=== PATIENT | male | born 1950 | race Caucasian/White ===

== ENCOUNTER → 2016-07-28 | Outpatient (CLI) | payer MEDICARE, OTHER ==
[2016-07-28 11:53] LABS: Appearance,Urine Clear (Clear); Bilirubin,Urine Negative (Negative); Glucose,Urine (UA) Negative (Negative); Ketones,Urine Negative (Negative); Leukocyte Esterase,Urine Negative (Negative); Nitrite,Urine Negative (Negative); Protein,Urine Negative (Negative); Specific Gravity,Urine 1.008 (1.001-1.035); UA Billing (MACRO vs. MICRO) CHEM; Urobilinogen,Urine <2.0 mg/dL (<2.0)
[2016-07-28 11:56] LABS: Partial Thromboplastin Time 24.9 sec (22.0-30.0); Prothrombin Time 10.3 sec (9.0-12.0)
[2016-07-28 11:57] LABS: Basophils % (A) 1 %; CHCM 33.4; Eosinophils # (A) 0.2 k/uL (0-0.7); Eosinophils % (A) 3 %; HGB 13.3 gm/dL (13.0-17.5); Luc # (Auto) 0.16; Luc % (Auto) 2; Lymphocytes # (A) 1.8 k/uL (1.0-4.8); Lymphocytes % (A) 26 %; MCHC 33.3 g/dL (31.0-37.0); MCV 87.1 fL (80.0-100.0); Mean Platelet Volume 7.4; Monocytes # (A) 0.6 k/uL (0-1.0); Monocytes % (A) 8 %; Neutrophils # (A) 4.2 k/uL (1.3-7.7); Neutrophils % (A) 61 %; RBC 4.59 m/uL (4.30-5.90); RDW 14.3 % (11.5-15.5); WBC 6.9 k/uL (3.8-10.6); WBC (Perox) 6.87
[2016-07-28 12:07] LABS: Anion Gap 8 mmol/L; Blood Urea Nitrogen 23 mg/dL (9-20); Calcium 8.9 mg/dL (8.4-10.2); Carbon Dioxide 30 mmol/L (22-30); Chloride 100 mmol/L (98-107); Glucose 91 mg/dL (74-99); Non-African American GFR(MDRD) >60 (>60 ml/min/1.73 sqM); Potassium 3.9 mmol/L (3.5-5.1); Sodium 138 mmol/L (137-145)
--- NOTE | 2016-07-28 12:08 | XR ---
EXAMINATION TYPE: XR chest 2V DATE OF EXAM: 07/28/2016 12:03 PM COMPARISON: NONE TECHNIQUE: PA and lateral views submitted. HISTORY: Presurgical FINDINGS: The lungs are clear and there is no pneumothorax, pleural effusion, or focal pneumonia. Hypertrophi c and degenerative change of the spine. Arthropathy of the shoulders. No overt failure. IMPRESSION: 1. No acute process.
== END | disposition home or self-care (01) ==
LOC: LABPAT 11:16
PROVIDERS: ATTEND Orthopaedic Surgery Orthopaedic Surgery of the Spine
DX: Z01.812 Encounter for preprocedural laboratory examination (principal)
CPT/HCPCS: 71020; 80048; 81003; 85025; 85610; 85730

== ENCOUNTER → 2016-08-05 | Outpatient (CLI) | payer MEDICARE, OTHER | END | disposition home or self-care (01) | LOC: LABWHC1 11:49 | PROVIDERS: ATTEND Orthopaedic Surgery Orthopaedic Surgery of the Spine | DX: Z01.818 Encounter for other preprocedural examination (principal); Z79.01 Long term (current) use of anticoagulants | CPT/HCPCS: 86850; 86900; 86901 ==

== ENCOUNTER 2016-08-10 09:51 | Inpatient (IN) | payer MEDICARE, OTHER ==
[2016-07-30 15:16] VITALS: BMI 26.7
[~2016-08-10 09:51] MED LIST: BACITRACIN 50,000 UNIT, POLYMYXIN B 500,000 UNIT in SODIUM CHLORIDE 0.9% IRRIGATIO 1,00... IRRIGATION ONE; DEXAMETHASONE SOD PHOSPHATE 10 MG/ML 1 ML VIAL IV ONE; HYDROmorphone 1 MG/ML 1 ML SYRINGE IVP PRN; LIDOCAINE 1% 20 ML VIAL (10MG/ML) FOR IV START INTRADERMA PRN; ONDANSETRON 4 MG/2 ML VIAL IVP ONE; SCOPOLAMINE 1.5MG/72HR PATCH TRANSDERM ONE; ceFAZolin 2 GM in SODIUM CHLORIDE 0.9% 100 ML IVPB ONE
[2016-08-10] MEDS: LACTATED RINGERS 1,000 ML IV SCH (11:59)
[2016-08-10] MEDS ORDERED: MIDAZOLAM 2 MG/2 ML VIAL IV ONE (12:08)
[2016-08-10] MEDS ORDERED: LIDOCAINE 0.5%-EPI 1:200,000 50 ML VIAL SQ ONE ×3 (12:46→13:21)
[2016-08-10] MEDS ORDERED: GELATIN SPONGE,ABSORB (LARGE) 1 EACH SPONGE MISCELLANE ONE ×2 (12:46→13:21)
[2016-08-10] MEDS ORDERED: THROMBIN (BOVINE) 5,000 UNIT VIAL MISCELLANE ONE ×2 (12:47→13:21)
[2016-08-10] MEDS ORDERED: ePHEDrine 50 MG/ML 1 ML AMP ONE (12:48)
[2016-08-10] MEDS ORDERED: PHENYLEPHRINE-0.9% NACL SYG 1 MG/10 ML SYRINGE ONE (12:48)
[2016-08-10] MEDS ORDERED: PROPOFOL 10 MG/ML 20 ML VIAL IV ONE (12:48)
[2016-08-10] MEDS ORDERED: GLYCOPYRROLATE 0.2 MG/ML 2 ML VIAL ONE (12:48)
[2016-08-10] MEDS ORDERED: MIDAZOLAM 2 MG/2 ML VIAL ONE (12:48)
[2016-08-10] MEDS ORDERED: SUCCINYLCHOLINE CHLORIDE 100 MG/5 ML SYR IV ONE (12:48)
[2016-08-10] MEDS ORDERED: LIDOCAINE 1% INJ 10MG/ML (20 ML MDV) ONE (12:48)
[2016-08-10] MEDS ORDERED: ROCURONIUM BROMIDE 10 MG/ML 10 ML VIAL IV ONE (12:48)
[2016-08-10] MEDS ORDERED: fentaNYL (PF) 50 MCG/ML 2 ML AMP ONE (12:48)
[2016-08-10] MEDS ORDERED: LACTATED RINGERS 1,000 ML IV ONE ×2 (13:44→15:18)
--- NOTE | 2016-08-10 14:22 | XR ---
Cervical spine HISTORY: Needle placement Single lateral view of the cervical spine submitted No comparisons There is a needle at the intervertebral disc space C4-5 with there is associated loss of disc height. Endotracheal tube is in place. There are overlying leads. Anterolisthesis grade 1 C4-5. There is mul tilevel spondylosis and loss of disc height and intervertebral levels. IMPRESSION: Orthopedic localization.
[2016-08-10] MEDS ORDERED: BENZOCAINE/MENTHOL LOZENG 1 EACH LOZENGE MUCOUS MEM PRN (15:15)
[2016-08-10] MEDS ORDERED: DIAZEPAM 5 MG TAB PO PRN (15:15)
[2016-08-10] MEDS ORDERED: MAGNESIUM HYDROXIDE 2,400 MG/10 ML CUP PO PRN (15:15)
[2016-08-10] MEDS ORDERED: HYDROmorphone 1 MG/ML 1 ML SYRINGE IVP PRN (15:15)
[2016-08-10] MEDS ORDERED: ONDANSETRON 4 MG/2 ML VIAL IVP PRN (15:16)
[2016-08-10] MEDS ORDERED: ACETAMINOPHEN TAB 325 MG TAB PO PRN (15:16)
[2016-08-10] MEDS ORDERED: DOCUSATE 100 MG CAP PO PRN (15:17)
[2016-08-10] MEDS ORDERED: traMADol 50 MG TAB PO PRN (15:19)
--- NOTE | 2016-08-10 15:26 | P.OP ---
Date of Procedure: 08/10/16 Preoperative Diagnosis: Cervical stenosis C4 5 C5 6 C6 7, degenerative disc disease C4 5 C5 6 C6 7, herniated nucleus pulposis C4 5 C5 6 C6 7, neck pain with right upper extremity radiculopathy Postoperative Diagnosis: Same Procedure(s) Performed: Implants: Anesthesia: GETA Pathology: none sent Condition: stable Disposition: PACU Indications for Procedure: Operative Findings: Description of Procedure: BRIEF OPERATIVE NOTE Preoperative Diagnosis: Cervical stenosis C4 5 C5 6 C6 7, degenerative disc disease C4 5 C5 6 C6 7, herniated nucleus pulposus C4 5 C5 6 C6 7, neck pain with upper extremity radiculopathy Postoperative Diagnosis: Same Procedure: Anterior cervical decompression with discectomy and fusion C4 5 C5 6 C6 7 Placement of interbody graft C4 5 C5 6 C6 7 Application of anterior cervical plate C4 5 6 and 7 Surgeon: Dr. Park Photovoltaic Panel Installer: Sherif Sky is present throughout the entire the case persistence during positioning, dissection, exposure, visualization, and all crucial elements of the case as well as closure. Anesthesia: General anesthesia Estimated blood loss: Approximately 100 mL Complications: None apparent Components implanted: K2M Rose anterior cervical plate system with a 56 mm plate and 8 screws measuring 40 by 13 mm and ViKos interbody allograft bone graft Disposition: To recovery room in good stable condition. OPERATIVE INDICATIONS The patient has had long-standing issues in their neck and upper extremities. He is found have severe stenosis at C4 5 C5 6 C6 7 with significant disc degeneration evidence of herniated disc which correlated well with his neck and upper extremity symptoms particularly on the right side. The patient has been through conservative treatment. He is not having any prolonged benefit despite aggressive conservative treatment. We discussed various treatment options including surgery, and the patient wishes to proceed with surgery We discussed the risk, patient's alternatives and benefits of surgery including but not limited to, risk of bleeding risk of infection, risk of need for further surgery , risk of decreased, loss of motion, muscle function, malunion nonunion, hardware failure, nerve damage, paralysis, heart attack, and . OPERATIVE SUMMARY After discussing all the risks, patient alternatives and benefits at length, the patient elected to proceed with surgical intervention, signed informed consent, and presented for their procedure. The patient was seen and examined in the preoperative holding area and the surgical site was marked. The patient was given antibiotics and brought to the operating room. The patient was positioned on the operating room table in a supine position being careful to pad any bony prominences and pressure points. The patient was sedated and intubated by anesthesia in standard fashion. Once the airway and C- spine were stabilized the patient's arms were padded and tucked at her side, with her shoulders gently taped. The head was placed in a donut pad with the neck in good neutral alignment and position. We were careful to maintain the patient's cervical spine and good neutral alignment and position throughout. The patient was prepped and draped in a normal standard fashion. An appropriate timeout and keystone protocol performed. We were able to proceed with the surgery. The local wound area was infiltrated with local anesthetic. An incision was made transversely approximately 2-1/2 cm over the appropriate levels at C5 6. Dissection was taken down subcutaneously to the level of the platysma which was split in line with its fibers. Dissection was taken with a carotid approach, with the trachea and esophagus medial and the carotid sheath laterally. We dissected down to the anterior surface of the vertebral bodies at C4 5 6 and 7. Intraoperative x-ray was taken which showed a marker at the appropriate level at C4 5. With the appropriate level positively confirmed, we were able to proceed with discectomy at the appropriate levels starting at C6 7 and then at C5 6 and then at C45. There is significant anterior osteophytic spurring and these anterior spurs removed with comminution of rongeurs and high- speed bur. All of the operative levels were exposed appropriately. The patient had all their twitches back, and there was no evidence of recurrent laryngeal issue. The wound was copiously irrigated and suctioned dry as had been done periodically throughout the case. At the appropriate level/levels, I established an annulotomy with an 11 blade scalpel. A discectomy was performed with a combination of pituitary rongeurs, curettes, a high-speed bur, and Kerrison rongeurs. The posterior longitudinal ligament was taken down as were any posterior osteophytes. Note was made of severe disc degeneration at each of the levels particularly at C4 5 and at C6 7 I was able to take down the posterior osteophytic spurs as well as the disc protrusion, herniation and posterior longitudinal ligament. This was done at each level. This gave good central and bilateral foraminal decompression. There is no evidence of any dural tear or leak. The endplates were prepared with a high-speed bur. With the endplates in good parallel position, I was able to size for the appropriate size interbody graft. The wound was irrigated and suctioned dry the graft was prepared and malleted into position. It had good alignment and position with the anterior surface flush with the anterior surface of the vertebral bodies. This was done similarly the appropriate levels. With the grafts intact, I was able to measure and contour and appropriate sized plate. The plate was positioned at the midline over the appropriate levels from C4 C7. Screw holes were established with a hand drill and drill guide. Screws were placed in good alignment and position with excellent bony purchase. They were seated under the locking device. The construct was checked and found to be stable. Intraoperative x-ray was taken which showed good alignment and position of the implants at the appropriate levels from C4 to C7. There was no evidence of any dural tear or leak. Good hemostasis was maintained. The wound was copiously irrigated and suctioned dry as had been done periodically throughout the case. The platysma was closed with absorbable suture. The subcutaneous tissue was closed. The subcuticular tissue was closed with absorbable suture. The wound was cleaned and dried and dressed appropriately. A soft cervical collar was placed appropriately. The patient was woken up by anesthesia, extubated, transferred back gently to their hospital bed and brought to the recovery room in good stable condition. The patient will be admitted to the hospital for appropriate postoperative care , medical management and monitoring. We will continue to follow them closely about the postoperative course.
--- NOTE | 2016-08-10 15:51 | XR ---
EXAMINATION TYPE: XR cervical spine 1V DATE OF EXAM ORDERED: 08/10/2016 HISTORY: Hardware Placement. COMPARISON: Intraoperative study of earlier today. FINDINGS: There has been an ACDF extending from C4 to C7. Alignment is maintained. Spacing material has been placed. IMPRESSION: STATUS POST ACDF C4-C7.
[2016-08-10] MEDS: CARVEDILOL 3.125 MG TAB PO SCH (17:54)
[2016-08-10] MEDS ORDERED: GLUCOSAMINE PO SCH (21:00)
[2016-08-10] MEDS ORDERED: EZETIMIBE 10 MG TAB PO SCH (21:00)
[2016-08-10] MEDS ORDERED: CHONDRO SU A PO SCH (21:00)
[2016-08-10] MEDS ORDERED: GABAPENTIN 300 MG CAP PO SCH (21:00)
[2016-08-10] MEDS: ceFAZolin 2 GM in SODIUM CHLORIDE 0.9% 100 ML IVPB SCH (22:22)
[2016-08-11 01:26] VITALS: RESP 16
[2016-08-11] MEDS: SODIUM CHLORIDE 0.9% 1,000 ML IV SCH ×2 (04:56→09:17)
[2016-08-11] MEDS: ceFAZolin 2 GM in SODIUM CHLORIDE 0.9% 100 ML IVPB SCH (05:05)
[2016-08-11] MEDS ORDERED: LEVOTHYROXINE 100 MCG TAB PO SCH (06:30)
[2016-08-11 07:44] VITALS: BP 160/80; PULSE 67; TEMP 97.7
--- NOTE | 2016-08-11 08:47 | P.DS ---
Providers Date of admission: 08/10/16 11:20 Expected date of discharge: 08/11/16 Attending physician: Reynaldo Park Primary care physician: Stated None - Discharge Diagnosis(es) (1) Arthrodesis status Current Visit: Yes Status: Acute (2) Cervical stenosis of spinal canal Current Visit: Yes Status: Acute (3) Degenerative disc disease, cervical Current Visit: Yes Status: Acute (4) Herniated nucleus pulposus, cervical Current Visit: Yes Status: Acute (5) Radiculopathy affecting upper extremity Current Visit: Yes Status: Acute Hospital Course: This is a pleasant 65-year-old male who presented with C4-5, C5-6, and C6-7 cervical stenosis, herniated nucleus pulposus, and degenerative disc disease, cervical pain, and right upper extremity radiculopathy who failed outpatient conservative therapy. He was admitted for an anterior cervical decompression and fusion C4-5, C5-6, and C6-7. Overall, his pain has been controlled postsurgically. He has had some difficulty with swallowing but states he has had some improvement this morning as compared to yesterday. He has continued to have some right upper extremity radiculopathy in his right hand. The patient tolerated the procedure well and did well postoperatively. Condition on day of discharge stable. Patient feels he is ready for discharge. Patient will be discharged home. Patient was cleared preoperatively for surgery. Patient currently denies any nausea, vomiting, fever, or chills. Patient is voiding freely without difficulty and has been urinating frequently.. Patient may shower Tegaderm dressing intact. Patient may remove Tegaderm dressing in 3 days and shower without a dressing at that time. Patient should keep Steri-Strips intact and allow them to fall off naturally. Patient should refrain from driving until at least after their first follow-up appointment in the office. Patient should avoid excessive neck flexion, extension, rotation, and lateral sidebending; no overhead lifting; no lifting greater than 10 pounds. Patient may resume all home medications at discharge while avoiding anti-inflammatories with over the next 6 weeks. The patient will be given a prescription for Ultram 50 mg she may take 1 tab very 6 hours as needed for pain. Physical Exam on day of discharge: Patient is awake, alert, and oriented 3 Vital signs stable Good chest excursion with deep inspiration and expiration Abdomen soft nontender No signs or symptoms of DVT; no calf pain Full range of motion of the cervical spine with adequate flexion, extension, and bilateral rotation Immigration Specialist strength, thumb strength, interosseous strength, biceps strength, triceps strength, and shoulder strength positive sustained bilaterally Soft cervical collar intact Incision is clean, dry, and intact; no erythema, purulence, or signs of infection Tegaderm dressing and non-stick Telfa intact Procedures: Anterior cervical decompression fusion C4-5, C5-6, and C6-7 Patient Condition at Discharge: Stable Plan - Discharge Summary New Discharge Prescriptions: New traMADol HCl [Ultram] 50 mg PO Q6H PRN #90 tab PRN Reason: Pain No Action Cetirizine HCl 10 mg PO DAILY Docusate Sodium [Stool Softener] 100 mg PO DAILY PRN PRN Reason: Constipation Furosemide [Lasix] 40 mg PO DAILY Potassium Chloride [Klor-Con 10] 10 meq PO DAILY [place]-3 Fatty Acids [[place]-3] 1,000 mg PO HS Niacin 1,000 mg PO HS Niacin 500 mg PO DAILY Magnesium Oxide [Mag-Ox] 400 mg PO DAILY Glucosamine/Chondro Savage A [Glucosamine-Chondroitin Tab] 1 tab PO BID Multivit-Min/FA/Lycopen/Lutein [Centrum Silver Men Tablet] 1 tab PO DAILY traMADol HCL [Ultram] 100 mg PO HS Aspirin 325 mg PO DAILY traMADol HCL [Ultram] 50 mg PO DAILY Gabapentin [Neurontin] 300 mg PO HS Levothyroxine Sodium [Levoxyl] 100 mcg PO DAILY Ezetimibe [Zetia] 10 mg PO HS Hydrochlorothiazide [Hydrodiuril] 25 mg PO DAILY FLUoxetine HCL [PROzac] 20 mg PO DAILY Triamterene-Hctz 37.5-25Mg [Dyazide 37.5-25 Capsule] 1 cap PO DAILY Lidocaine HCl/Menthol [Icy Hot 4%-1% Cream] 1 applic TOPICAL DAILY PRN PRN Reason: Pain Carvedilol [Coreg] 3.125 mg PO BID Vitamin B12 (Unknown Dose) 1 tab PO DAILY Discharge Medication List Aspirin 325 mg PO DAILY 07/30/16 [History] Carvedilol [Coreg] 3.125 mg PO BID 07/30/16 [History] Cetirizine HCl 10 mg PO DAILY 07/30/16 [History] Docusate Sodium [Stool Softener] 100 mg PO DAILY PRN 07/30/16 [History] Ezetimibe [Zetia] 10 mg PO HS 07/30/16 [History] FLUoxetine HCL [PROzac] 20 mg PO DAILY 07/30/16 [History] Furosemide [Lasix] 40 mg PO DAILY 07/30/16 [History] Gabapentin [Neurontin] 300 mg PO HS 07/30/16 [History] Glucosamine/Chondro Savage A [Glucosamine-Chondroitin Tab] 1 tab PO BID 07/30/16 [ History] Hydrochlorothiazide [Hydrodiuril] 25 mg PO DAILY 07/30/16 [History] Levothyroxine Sodium [Levoxyl] 100 mcg PO DAILY 07/30/16 [History] Lidocaine HCl/Menthol [Icy Hot 4%-1% Cream] 1 applic TOPICAL DAILY PRN 07/30/16 [History] Magnesium Oxide [Mag-Ox] 400 mg PO DAILY 07/30/16 [History] Multivit-Min/FA/Lycopen/Lutein [Centrum Silver Men Tablet] 1 tab PO DAILY [History] Niacin 1,000 mg PO HS 07/30/16 [History] Niacin 500 mg PO DAILY 07/30/16 [History] [place]-3 Fatty Acids [[place]-3] 1,000 mg PO HS 07/30/16 [History] Potassium Chloride [Klor-Con 10] 10 meq PO DAILY 07/30/16 [History] Triamterene-Hctz 37.5-25Mg [Dyazide 37.5-25 Capsule] 1 cap PO DAILY 07/30/16 [ History] Vitamin B12 (Unknown Dose) 1 tab PO DAILY 07/30/16 [History] traMADol HCL [Ultram] 50 mg PO DAILY 07/30/16 [History] traMADol HCL [Ultram] 100 mg PO HS 07/30/16 [History] traMADol HCl [Ultram] 50 mg PO Q6H PRN #90 tab 08/11/16 [Rx] Follow up Appointment(s)/Referral(s): Sherif Hooper, DESHAWN [PHYSICIAN FOOD COUNTER ATTENDANT] - 2 Weeks (Patient may follow-up with Sherif Hooper PA-C or Dr. Stefano Park at [facility] in 2-3 weeks following discharge. ) Activity/Diet/Wound Care/Special Instructions: 1. Patient may shower Tegaderm dressing intact. 2. Patient may remove Tegaderm dressing in 3 days and shower without a dressing at that time. 3. Patient should keep Steri-Strips intact and allow them to fall off naturally. 4. Patient should refrain from driving until at least after their first follow- up appointment in the office. 5. Patient should avoid excessive bending, twisting, and lifting; no lifting greater than 10 pounds 6. Do not soak in tub Discharge Disposition: HOME SELF-CARE
[2016-08-11] MEDS ORDERED: HYDROCHLOROTHIAZIDE 25 MG TAB PO SCH (09:00)
[2016-08-11] MEDS ORDERED: FUROSEMIDE 40 MG TAB PO SCH (09:00)
[2016-08-11] MEDS ORDERED: FLUoxetine HCL 20 MG CAP PO SCH (09:00)
[2016-08-11] MEDS ORDERED: ASPIRIN 325 MG TAB PO SCH (09:00)
[2016-08-11] MEDS ORDERED: NIACIN TR 500 MG CAPSULE.ER PO SCH (09:00)
[2016-08-11] MEDS ORDERED: TRIAMTERENE-HCTZ 37.5-25MG 1 EACH CAP PO SCH (09:00)
[2016-08-11] MEDS ORDERED: LORATADINE 10 MG TAB PO SCH (09:00)
[2016-08-11] MEDS: LACTATED RINGERS 1,000 ML IV SCH (09:06)
[2016-08-11] MEDS: POTASSIUM CHLORIDE ER 10 MEQ TAB.ER.PRT PO SCH ×2 (09:12→09:29)
[2016-08-11] MEDS: CARVEDILOL 3.125 MG TAB PO SCH (09:12)
[2016-08-11] MEDS: SENNOSIDES-DOCUSATE SODIUM 1 EACH TAB PO SCH ×2 (09:13→09:28)
[2016-08-11] MEDS: MAGNESIUM OXIDE 400 MG TAB PO SCH ×2 (09:14→09:26)
[2016-08-11] MEDS ORDERED: MULTIVITAMINS, THERA 1 EACH TAB PO SCH (12:00)
== END 2016-08-11 11:15 | disposition home or self-care (01) | DRG 473 ==
LOC: 2ORMAIN 11:20 → MERGE 13:00 → 3SUR 15:32
PROVIDERS: ADMIT Orthopaedic Surgery Orthopaedic Surgery of the Spine; ATTEND Orthopaedic Surgery Orthopaedic Surgery of the Spine
PROC: 0RT30ZZ Resection of Cervical Vertebral Disc, Open Approach (ICD-10-PCS; principal; 2016-08-10 13:00)
PROC: 0RG2070 Fusion of 2 or more Cervical Vertebral Joints with Autologous Tissue Substitute, Anterior Approach, Anterior Column, Open Approach (ICD-10-PCS; principal; 2016-08-10 13:00)
DX: M48.02 Spinal stenosis, cervical region (principal); I10 Essential (primary) hypertension; Z79.899 Other long term (current) drug therapy; M50.121 Cervical disc disorder at C4-C5 level with radiculopathy; M50.122 Cervical disc disorder at C5-C6 level with radiculopathy; M50.123 Cervical disc disorder at C6-C7 level with radiculopathy; Z85.46 Personal history of malignant neoplasm of prostate; F32.9 Major depressive disorder, single episode, unspecified; E03.9 Hypothyroidism, unspecified; I25.10 Atherosclerotic heart disease of native coronary artery without angina pectoris
CPT/HCPCS: 72020; 86850; 86900; 86901